=== PATIENT | male | born 1995 | race Caucasian/White ===

== ENCOUNTER 2023-06-20 05:13 | Emergency (ER) | payer OTHER, SELFPAY ==
[2023-06-20 05:18] VITALS: BP 145/68; PULSE 80; RESP 18; TEMP 36.6; O2SAT 97; BMI 35.6
[2023-06-20 05:58] LABS: Basophils Percent Auto 0.4 % (0-2); Eosinophils Absolute Auto 0.1 X10*3/uL (0.0-0.4); Eosinophils Percent Auto 0.9 % (0-4); Hematocrit 45.2 % (42.0-52.0); Imm Gran Abs Auto 0.05 X10*3/uL (0.00-0.03); Imm Gran Pct Auto 0.5 % (0.0-0.4); Lymphocytes Absolute Auto 2.6 X10*3/uL (1.2-4.9); Lymphocytes Percent Auto 25.3 % (20-40); MANUAL DIFF FLAG NO; Mean Corpuscular HGB Conc 33.2 g/dl (31.0-36.0); Mean Corpuscular Volume 90.4 fL (80.0-98.0); Mean Platelet Volume 11.1 fL (9.4-12.4); Monocytes Absolute Auto 0.9 X10*3/uL (0.1-1.2); Monocytes Percent Auto 8.8 % (2-11); Neutrophils Absolute Auto 6.5 x10*3/uL (2.0-8.3); Neutrophils Percent Auto 64.1 % (45-73); Platelet Count 287 X10*3/uL (160-400); Red Cell Distribution Width 12.9 % (11.0-16.0); White Blood Count 10.1 X10*3/uL (4.8-10.8)
--- NOTE | 2023-06-20 06:03 | PC.NURSE ---
pt c/o N/V/D for 24 hrs, pt is concerned about diarrhea consistency, thin zhang stool he has never had before. decreased PO intake, unable to keep water or food down. upper abd pain, pain around umbilical w/ palpation. vomited x4 in past 6hrs. last BM 2hrs ago, pt reports 8x within 1 hr.
[2023-06-20 06:13] LABS: Alanine Aminotransferase 23 U/L (0-40); Albumin Level 4.6 g/dL (3.5-5.0); Alkaline Phosphatase 100 U/L (39-117); Anion Gap 12 (12-20); Aspartate Amino Transferase 13 U/L (5-37); Bilirubin Direct 0.1 mg/dL (0.0-0.5); Bilirubin Total 0.4 mg/dL (0.0-1.0); Blood Urea Nitrogen 14 mg/dL (9-16); Calcium 9.5 mg/dL (8.4-10.2); Carbon Dioxide 29 mmol/L (22-29); Chloride 103 mmol/L (96-108); Creatinine Clr Calc Pharmacy 181.8; Estimated Glomerular Filt Rate > 60; Glucose Random 103 mg/dL (60-115); Lipase 13 U/L (8-78); Potassium 3.6 mmol/L (3.3-5.1); Sodium 140 mmol/L (135-145); Total Protein 7.7 g/dL (6.5-8.0)
[2023-06-20 06:37] VITALS: BP 127/79; PULSE 63; RESP 16; TEMP 36.6; O2SAT 98
--- NOTE | 2023-06-20 06:40 | ED.NAVMDI ---
HPI - Nausea/Vomiting/Diarrhea General Chief complaint: Nausea/Vomiting/Diarrhea Stated complaint: Vomiting/Diarrhea Time Seen by Provider: 06/20/23 06:35 Source: patient Mode of arrival: ambulatory Limitations: no limitations History of Present Illness HPI Narrative: 27-year-old male with no significant past medical history presents to the ED for evaluation of nausea and vomiting that began yesterday approximately 2 hours after eating [employer]. Abdominal pain is localized to the epigastric region. No radiation of pain. Reports pain is cramping in character. Rates pain intensity 7/10. Endorses 4 episodes of vomiting since yesterday along with inability to keep food down. Additionally admits to nonbloody diarrhea. Has not taken anything for his symptoms at home. Last bowel movement 2 hours ago. Denies etoh or ilicit drug use. Denies any known sick contacts. Denies fever, chills, neck or back pain, chest pain, SOB, constipation, flank pain, dysuria, hematuria, LE pain/swelling. Related Data Previous Rx's Medication Instructions Recorded ondansetron 4 mg disintegrating 4 mg PO DAILY PRN nausea and 06/20/23 tablet vomiting 5 days #14 tabs Allergies Allergy/AdvReac Type Severity Reaction Status Date / Time SEAFOOD Allergy Severe ANGIOEDEMA Uncoded 06/20/23 05:17 Review of Systems Review of Systems: Constitutional: No fever, chills, fatigue, night sweats, weight changes ENT/Mouth: No ear pain, hearing loss, nasal congestion, sinus pain, rhinorrhea, sore throat Eyes: No eye pain, swelling, redness, vision changes, discharge Cardio: No chest pain, palpitations, DELEON, orthopnea, peripheral edema Pulm: No SOB, cough, sputum, wheezing, dyspnea, hemoptysis GI: +nausea, +vomiting, No hematemesis, +abdominal pain, +diarrhea, No constipation, hematochezia, melena : No irregular bleeding, dysuria, frequency, urgency, hesitancy, hematuria, flank pain, urinary flow changes, urinary incontinence or retention MSK: No back pain, neck pain, joint pain, myalgias Skin: No lesions, rashes Neuro: No weakness, numbness, paresthesias, LOC, dizziness, headache All other systems reviewed and are negative. [facility] Past Medical History Attestation statement: The following information was validated with the patient. Source: old records reviewed and nursing notes reviewed Social History Alcohol intake: current Alcohol intake frequency: holidays/special occasions only Smoked in Last 30 Days: Yes Use of substances other than those prescribed or required for medical reasons: Yes Substance Use Type: Marijuana Substance Use Frequency: Daily Last Used Substance: Just Prior to Admission Advance Directives: No Advance Directives Information Provided: Yes Physical Exam Vital Signs: Vital Signs: Last Vital Signs Temp 97.7 F 06/20/23 09:21 Pulse 59 06/20/23 09:21 Resp 16 06/20/23 09:21 BP 101/70 06/20/23 09:21 Pulse Ox 96 06/20/23 09:21 O2 Del Method Room Air 06/20/23 09:21 BMI result Body Mass Index 35.6 Vital signs stable, afebrile Const: General: cooperative, healthy appearing, comfortable, no acute distress, alert and awake Nutritional Appearance: overweight Orientation/consciousness: patient oriented x3 Limitations: no limitations HEENT: Head: Yes normal to inspection Ears: hearing grossly normal bilaterally General nose exam: Normal external nose present Mouth: Normal oral and palatal mucosa present and moist mucous membranes Eyes: General: appearance normal, both eyes and all related structures Conjunctivae: conjunctivae normal Sclerae: sclerae normal Pupils: Equal, round and reactive pupils present Neck: Neck: Yes normal visual inspection and Yes no lymphadenopathy Resp: Effort & Inspection: normal respiratory effort and able to speak in complete sentences Auscultation: clear to auscultation bilaterally Cardio: Rate: regular rate Rhythm: regular rhythm Peripheral pulses: radial pulses present and ulnar radial pulses present GI: Other: Abdomen soft, nondistended, nontender to palpation, no rebound tenderness or guarding. Normoactive bowel sounds x4. Inspection: Yes normal to inspection and No abdominal wall ecchymosis : General: Yes no CVA tenderness Back/Spine/Pelvis: Back: no CVA tenderness Skin: General skin exam: no rashes or lesions noted Neuro: General: patient oriented x3, gait normal and moves all extremities Cranial nerves: Yes Equal, round and reactive pupils present Extrem: General: Yes normal to inspection, Yes capillary refill normal and Yes no clubbing, cyanosis or edema Course Course Course Narrative: 0648-- CBC without leukocytosis or anemia. Chemistry without any acute electrolyte abnormalities requiring intervention. Normal renal and liver function. Lipase wnl > unlikely pancreatitis. Patient is reporting some nausea at present. Will order Zofran and p.o. trial. 0940-- On re-evaluation, patient tolerating crackers and yudelka sarah in room. He is sleeping. His vital signs have remained stable in the ED. He is afebrile. I feel comfortable discharging patient home as his symptoms are consistent with gastroenteritis. Will send Zogeorge to his pharmacy. Advised him to eat a bland diet and stay hydrated. Discussed strict return precautions. All questions answered at this time. Patient is agreeable with disposition stable for discharge. Medications Administered Discontinued Medications Generic Name Dose Route Start Last Admin Trade Name Freq PRN Reason Stop Dose Admin Ondansetron HCl 4 mg 06/20/23 07:00 06/20/23 07:15 Ondansetron Odt 4 Mg Tab.Rapdis TRANSLINGU 06/20/23 07:01 4 mg ONCE ONE Administration Medical Decision Making Medical Decision Making [facility] Narrative: 27-year-old male with no significant past medical history presents to the ED for evaluation of nausea and vomiting that began yesterday approximately 2 hours after eating [employer]. Vital signs stable, afebrile. Patient is nontoxic appearing and in NAD. Patient is sleeping on my initial exam. RRR. Lungs CTA bilaterally. Abdomen is soft, nondistended, nontender to palpation, no rebound tenderness or guarding. There are normoactive bowel sounds x4. Clinical concern for gastroenteritis, viral syndrome, food poisoning, GERD. Unlikely appendicitis, cholecystitis, pancreatitis, PUD, nephrolithiasis. Unlikely SBO, ischemic bowel, acute abdomen. Plan at this time is to review labs obtained in triage, Zofran and p.o. trial. Differential Diagnosis Differential Diagnoses: The differential diagnosis associated with the presentation includes As above. Admission/Observation Not indicated. Lab Data [facility] Lab Attestation statement: I reviewed the patient's lab results. As above. 06/20/23 05:54 06/20/23 05:54 Labs: Lab Results 06/20/23 Range/Units 05:54 WBC 10.1 (4.8-10.8) X10*3/uL RBC 5.00 (4.60-5.80) X10*6/uL Hgb 15.0 (14.0-18.0) g/dl Hct 45.2 (42.0-52.0) % MCV 90.4 (80.0-98.0) fL MCH 30.0 (27.0-33.0) pg MCHC 33.2 (31.0-36.0) g/dl RDW 12.9 (11.0-16.0) % Plt Count 287 (160-400) X10*3/uL MPV 11.1 (9.4-12.4) fL Immature Gran % (Auto) 0.5 H (0.0-0.4) % Neut % (Auto) 64.1 (45-73) % Lymph % (Auto) 25.3 (20-40) % [place] % (Auto) 8.8 (2-11) % Eos % (Auto) 0.9 (0-4) % Baso % (Auto) 0.4 (0-2) % Lymph # (Auto) 2.6 (1.2-4.9) X10*3/uL [place] # (Auto) 0.9 (0.1-1.2) X10*3/uL Eos # (Auto) 0.1 (0.0-0.4) X10*3/uL Baso # (Auto) 0.0 (0.0-0.2) X10*3/uL Abs Immat Gran (auto) 0.05 H (0.00-0.03) X10*3/uL Absolute Neuts (auto) 6.5 (2.0-8.3) x10*3/uL Absolute Nucleated RBC 0.000 (0.0-0.012) X10*3/uL Nucleated RBC % (auto) 0.0 (0.0-0.2) /100WBC Sodium 140 (135-145) mmol/L Potassium 3.6 (3.3-5.1) mmol/L Chloride 103 (96-108) mmol/L Carbon Dioxide 29 (22-29) mmol/L Anion Gap 12 (12-20) BUN 14 (9-16) mg/dL Creatinine 0.82 (0.5-1.4) mg/dL Estim Creat Clear Calc 181.8 Estimated GFR > 60 Random Glucose 103 (60-115) mg/dL Calcium 9.5 (8.4-10.2) mg/dL Total Bilirubin 0.4 (0.0-1.0) mg/dL Direct Bilirubin 0.1 (0.0-0.5) mg/dL AST 13 (5-37) U/L ALT 23 (0-40) U/L Alkaline Phosphatase 100 (39-117) U/L Total Protein 7.7 (6.5-8.0) g/dL Albumin 4.6 (3.5-5.0) g/dL Lipase 13 (8-78) U/L External Record Review External record reviewed: Inpatient record Tests considered The following testing was considered but not selected: I considered ordering a CT scan of the abdomen/pelvis however there is no white count, abdomen not tender to palpation, not warranted at this time. I do not suspect surgical abdomen. Prescription Management I considered prescription management with: Pain Medication and Other (antiemetic) Critical Care Time Critical Care Time Critical Care Time: No Discharge Plan Discharge Clinical Impression: Gastroenteritis Patient Disposition: Home, Self-Care Instructions: Gastroenteritis (ED), Acute Nausea and Vomiting (ED) Additional Instructions: Your lab workup today was reassuring.?? Your symptoms are most consistent with a viral stomach bug, also known as gastroenteritis.? The treatment for this is supportive care. Symptoms usually resolve on their own in 48-72 hours.? The recommendation is rest and lots of oral hydration.? Stick to a bland diet like soup and toast while you are not feeling well.? Zofran is an anti-nausea medication. This has been sent to your pharmacy for you to take as needed for nausea.? You can also try over the counter Pepto Bismol or Imodium as needed for upset stomach and diarrhea.? Follow up with your primary care provider as needed. If you develop new or worsening symptoms call 911 or come back to the ER for further evaluation. Prescriptions: New ondansetron 4 mg tablet,disintegrating 4 mg PO DAILY PRN (Reason: nausea and vomiting) 5 Days Qty: 14 0RF Referrals: Physician,None [Primary Care Provider] - Stand Alone Forms: Work/School Release Interventions: ED Discharge Assessment Last Done: 06/20/23 09:45 Discharge Date/Time: 06/20/23 09:45
[2023-06-20] MEDS: Ondansetron ODT 4 MG TAB.RAPDIS TRANSLINGU (07:15)
--- NOTE | 2023-06-20 07:24 | PC.NURSE ---
Patient sleeping in room, respirations even and unlabored with no signs/symptoms of distress at this time. Medicated per the MAR, will attempt to PO challenge.
[2023-06-20 09:21] VITALS: BP 101/70; PULSE 59; RESP 16; TEMP 36.5; O2SAT 96
--- NOTE | 2023-06-20 09:38 | PC.NURSE ---
able to eat crackers and drink yudelka sarah, no evidence of vomiting. patient has been sleeping the entire ER visit, respirations even and unlabored.
== END 2023-06-20 09:45 | disposition home or self-care (01) ==
PROVIDERS: Emergency Provider Emergency Medicine Emergency Medical Services
DX: K52.9 Noninfective gastroenteritis and colitis, unspecified (principal); R11.2 Nausea with vomiting, unspecified; Z79.899 Other long term (current) drug therapy
CPT/HCPCS: 36415; 80048; 80076; 83690; 85025; 99283; 99284